=== PATIENT | male | born 1945 | race Asian ===

== ENCOUNTER → 2022-10-10 | Outpatient (CLI) | payer MEDICARE, OTHER ==
[~2022-10-10] MED LIST: ATOR20TA86 PO; BENA10TA77 PO; CETI-450 PO; DOXA2TAB86 PO; TOLT2TAB2 PO
== END | disposition home or self-care (01) ==
LOC: RADMN 14:46
PROVIDERS: ATTEND Podiatrist Foot & Ankle Surgery
DX: M21.42 Flat foot [pes planus] (acquired), left foot (principal); M19.072 Primary osteoarthritis, left ankle and foot; M77.8 Other enthesopathies, not elsewhere classified; M19.071 Primary osteoarthritis, right ankle and foot; M21.41 Flat foot [pes planus] (acquired), right foot; M77.31 Calcaneal spur, right foot; M79.671 Pain in right foot; M79.672 Pain in left foot